=== PATIENT | female | born 1995 | race Caucasian/White ===

== ENCOUNTER 2017-02-14 16:00 | Outpatient (CLI) | payer BC, SELFPAY ==
[2017-02-14 17:00] VITALS: BMI 26.8
--- NOTE | 2017-03-18 13:22 | OB.TRI.NOTE ---
History of Present Illness Reason For Visit: R/O LABOR Home Medications Medication Instructions Recorded Vits [Prenatabs FA ] 1 tab PO DAILY 02/14/17 Naproxen [Naprosyn] 250 - 500 mg PO Q8H PRN PRN #30 tab 02/17/17 Allergies No Known Allergies Allergy (Verified 02/15/17 03:34) Impression/Plan False labor
== END 2017-02-14 17:17 | disposition home or self-care (01) ==
LOC: WP 17:01 → WPOUT 17:01
PROVIDERS: Visit Provider Obstetrics & Gynecology
DX: O47.9 False labor, unspecified (principal); Z3A.00 Weeks of gestation of pregnancy not specified
CPT/HCPCS: 59025; 59050; 99218; G0378

== ENCOUNTER 2018-01-20 16:46 | Emergency (ER) | payer BC, SELFPAY ==
[2018-01-20 16:46] VITALS: BP 115/67; PULSE 105; RESP 16; TEMP 36.6; O2SAT 98; BMI 21.6
[2018-01-20] MEDS: Ondansetron 4 MG/2 ML Vial IV (17:42)
[2018-01-20 17:43] LABS: Absolute Lymphocyte Count 0.38 X10^3/ul (0.83-4.51); Absolute Neutrophil Count 8.4 X10^3/uL (2.0-7.7); Basophil# 0.01 X10^3/uL; Basophil% 0.1 % (0-1); Eosinophil# 0.02 X10^3/uL; Eosinophils% 0.2 % (0-5); Hematocrit 39.6 % (37-47); Hemoglobin 13.3 g/dl (12.0-15.0); Lymphocyte # 0.38 X10^3/ul (4.0); Lymphocyte % 4.1 % (19-41); Mean Corp Hgb Conc 33.6 g/gl (32-36); Mean Corpuscular Hgb 30.9 pg (27.0-32.0); Mean Corpuscular Volume 91.9 fL (81-99); Mean Platelet Vol. 10.5 fl (6.2-12.0); Monocyte# 0.48 X10^3/uL; Monocyte% 5.1 % (0-10); Neutrophil # 8.42 X10^3/uL (2.7-7.7); Neutrophil % 90.3 % (47-70); POSITIVE COUNT NO; POSITIVE DIFFERENTIAL YES; POSITIVE MORPHOLOGY NO; Platelet Count 244 K/mm3 (150-450); RBC Distribution Width CV 13.5 % (11.6-14.6); RBC Distribution Width SD 45.2 fl (35.1-43.9); Red Blood Count 4.31 M/mm3 (4.2-5.4); White Blood Count 9.3 K/mm3 (4.4-11.0)
[2018-01-20] MEDS: 0.9% Normal Saline 1,000 ML 1000 ML IV (17:43)
[2018-01-20 17:44] LABS: Differential Indicated SCAN CRITERIA MET
[2018-01-20 17:52] LABS: Anion Gap 11 (5-15); BUN 7 mg/dL (7-18); BUN/Creat Ratio 12.8 RATIO (10-20); Chloride 106 mmol/L (98-107); Creatinine, Serum 0.55 mg/dL (0.55-1.02); EST Glomerular Filtration Rate 146 mL/min (>60); Est Glom Filt Rate - Afr Amer 176 mL/min (>60); Estimated Creatinine Clearance 176.57 ml/min; Glucose 82 mg/dL (74-106); Potassium 3.7 mmol/L (3.5-5.1); Sodium Level 139 mmol/L (136-145)
[2018-01-20 18:10] LABS: Anisocytosis RARE; Macrocytosis RARE; Platelet Estimate ADEQUATE (ADEQ)
--- NOTE | 2018-01-20 18:12 | ED.VISSUMM ---
- ER Visit Summary Date of Service: 01/20/18 Chief Complaint: Vomiting History of Present Illness: The patient is a 22 F who reports vomiting since 5 AM this morning. Patient is currently 22 weeks . She has some mild upper abdominal pain but no spotting or bleeding. She is felt normal movement. She has not had fever or chills. She has not had diarrhea. She denies urinary symptoms Physical Examination: Vital signs are unremarkable. Patient sitting upright in bed no acute distress. She is nontoxic appearing. Heart is regular rate and rhythm. Lung sounds are clear. Abdomen is soft, gravid, with mild epigastric tenderness. Normal bowel sounds are noted throughout. Test Results: CBC reveals normal white count with a slight left shift. Chemistry studies normal. Urinalysis shows 150 ketones but no sign of acute infection. heart tones are measured at 130. Emergency Department Course and Treatment: Patient is given a liter of IV fluids along with Zofran. On repeat evaluation she does feel improved and is able to tolerate p.o. She will be given a prescription for Zofran at home. Treatment Plan: [] Disposition: Discharge Impression: Vomiting, improved This note was generated with [employer] dictation software. It may contain incorrect words, spelling, and punctuation that were not noted in review of the chart prior to signing ED Disposition - Plan for ED Patient: Chief Complaint: Nausea/Vomiting Referrals: Care Physician,No Primary [Primary Care Provider] -
[2018-01-20 18:24] LABS: Red Blood Cells-Urine 0 SEEN /hpf (0-5)
[2018-01-20 18:55] LABS: Color, Urine Yellow (Yellow); Glucose, Dipstick Normal (Normal); Ketone-Dipstick 150 mg/dl (Negative); Leukocyte Esterase-Dipstick 100 /ul (Negative); Nitrite-Dipstick Negative (Negative); Occult Blood-Urine Negative /ul (Negative); Protein-Dipstick 15 mg/dl (Negative); Urine Bilirubin Dipstick Negative (Negative); Urine Clarity Cloudy (Clear); Urine Urobilinogen Normal (Normal)
[2018-01-20 18:58] LABS: Mucous, Urine 3+ /hpf (<or=2+); Squamous Epithelial Cells - UA 0-5 SEEN /hpf (5-10)
[2018-01-20 18:59] LABS: Bacteria RARE /hpf (None Seen); White Blood Cells 0-5 SEEN /hpf (0-5)
[2018-01-20 19:02] LABS: Transitional Epithelial - Ur 0-5 SEEN /hpf (0-5)
--- NOTE | 2018-01-20 19:43 | ED.DEP ---
ED Disposition - Plan for ED Patient: Disposition: Home or Assisted Living Chief Complaint: Nausea/Vomiting Instructions: ED Nausea Vomiting Prescriptions: Ondansetron [Zofran Odt] 4 mg PO Q8H PRN PRN #10 tablet PRN Reason: Nausea Referrals: Francoise Montiel MD [STAFF PHYSICIAN] - 3-5 Days if not improving
[2018-01-20 19:44] VITALS: BP 101/53; PULSE 94; RESP 16; O2SAT 98
[2018-01-20 19:53] VITALS: BP 101/53; PULSE 94; RESP 16; O2SAT 98
--- OUTSIDE RECORDS SUMMARY | 2018-03-17 16:32 | XMS RPT_ITS ---
:1995 Author Organization OHIP Care Team Providers Name Role Phone RAFAEL KINCAID Attending Unavailable DEANNE HERMOSILLO (CATTLE SPRAYER) Attending Unavailable SD JEFFERY Attending Unavailable BOSTON VARGAS SD Referring Unavailable JOSE SHER (CNM) Attending Unavailable NEKALI VARGAS SD Referring Unavailable JOSE SHER (CNM) Referring Unavailable JOSE SHER (CNM) Attending Unavailable BOSTON VARGAS SD Referring Unavailable BOSTON VARGAS SD Attending Unavailable BOSTON VARGAS, SD Referring Unavailable JOLIE BERMAN Attending Unavailable BOSTON VARGAS SD Referring Unavailable NATE MENDOSA Attending Unavailable Nate Mendosa Attending Unavailable Primay Care Physicia, No Primary Care Unavailable Rafael Kincaid Admitting Unavailable Rafael Kincaid Attending Unavailable Primay Care Physicia, No Primary Care Unavailable Nate Mendosa Attending Unavailable Primay Care Physicia, No Primary Care Unavailable Primay Care Physicia, No Primary Care Unavailable Leti Caban Attending Unavailable PROBLEMS PROBLEMS DATE TYPE CONDITION / CODE ATTENDING STATUS SOURCE 11/10/2017 Active 12 weeks gestation NA Active [facility] of / [facility] Z3A.12(ICD-10) Repository 10/10/2017 Active Encounter for NA Active [facility] supervision of [facility] other normal Repository , first trimester / Z34.81(ICD-10) 05/26/2017 Active Rash and other HERMOSILLO, DEANNE Active [facility] nonspecific skin (CATTLE SPRAYER) [facility] eruption / Repository R21(ICD-10) PROCEDURES PROCEDURES No Procedure Records FoundRESULTS RESULTS EMERGENCY DEPARTMENT Observed: 01/20/2018 Status: F Source: [place] SUMMARY 10:56 PM [facility] REPOSITORY [facility] Medical Records Department [address] [place] [address] Emergency Department Summary 01/20/18 1812 MR#: [id number] Acct: [id number] Name: VANDANA DOWNS Rep #: [id number] : 1995 22 From: Leti Caban MD PCP: Care Physician, No Primary Status: DEP ER - ER Visit Summary Date of Service: 01/20/18 Chief Complaint: Vomiting History of Present Illness: The patient is a 22 F who reports vomiting since 5 AM this morning. Patient is currently 22 weeks . She has some mild upper abdominal pain but no spotting or bleeding. She is felt normal movement. She has not had fever or chills. She has not had diarrhea. She denies urinary symptoms Physical Examination: Vital signs are unremarkable. Patient sitting upright in bed no acute distress. She is nontoxic appearing. Heart is regular rate and rhythm. Lung sounds are clear. Abdomen is soft, gravid, with mild epigastric tenderness. Normal bowel sounds are noted throughout. Test Results: CBC reveals normal white count with a slight left shift. Chemistry studies normal. Urinalysis shows 150 ketones but no sign of acute infection. heart tones are measured at 130. Emergency Department Course and Treatment: Patient is given a liter of IV fluids along with Zofran. On repeat evaluation she does feel improved and is able to tolerate p.o. She will be given a prescription for Zofran at home. Treatment Plan: [] Disposition: Discharge Impression: Vomiting, improved This note was generated with [employer] dictation software. It may contain incorrect words, spelling, and punctuation that were not noted in review of the chart prior to signing ED Disposition - Plan for ED Patient: Chief Complaint: Nausea/Vomiting Referrals: Care Physician,No Primary [Primary Care Provider] - What to do if you have Problems For any increased pain, shortness of breath, bleeding, nausea or vomiting, chest pain, or any unexpected problems, contact your Primary Care Provider. Call [facility] ([phone]) or report to the closest Emergency Room. Call 911 if necessary. 01/20/18 1466 <Electronically signed by Leti Caban MD> Date Leti Caban MD Cosigner Signature (If Indicated): Date CC: No Primary Care Physician DISCHARGE INSTRUCTION Observed: 01/20/2018 Status: F Source: [place] 7:44 PM [facility] REPOSITORY [facility] Medical Records Department [address] [place] [address] Discharge Instruction 01/20/18 1943 MR#: [id number] Acct: [id number] Name: HIMANSHUVANDANA Jannet Rep #: [id number] : 1995 22 From: Leti Caban MD PCP: Care Physician, No Primary Status: REG ER ED Disposition - Plan for ED Patient: Disposition: Home or Assisted Living Chief Complaint: Nausea/Vomiting Instructions: ED Nausea Vomiting Prescriptions: Ondansetron [Zofran Odt] 4 mg PO Q8H PRN PRN #10 tablet PRN Reason: Nausea Referrals: Sd Montiel MD [STAFF PHYSICIAN] - 3-5 Days if not improving What to do if you have Problems For any increased pain, shortness of breath, bleeding, nausea or vomiting, chest pain, or any unexpected problems, contact your Primary Care Provider. Call [facility] ([phone]) or report to the closest Emergency Room. Call 911 if necessary. 01/20/181943 <Electronically signed by Leti Caban MD> Date Leti Caban MD Cosigner Signature (If Indicated): Date CC: No Primary Care Physician URINALYSIS, COMPLETE Collected: 01/20/2018 Status: F Source: [place] 6:20 PM [facility] REPOSITORY Order Comment: Order Date: 01/20/18 Has pt arrived? Y How was Urine Obtained? CLEAN CATCH TYPE CODE TESTS RESULT OUT OF RANGE REFERENCE UNITS LAB L400.3000 Yellow COLOR Normal Yellow LAB L400.3050 Clear Normal CLARITY Cloudy LAB L400.3200 Normal mg/dl Normal GLUCOSE, UR Normal LAB L400.3300 Negative mg/dL Normal BILIRUBIN URINE Negative LAB L400.3400 Negative mg/dl High KETONE UR 150 Result Comment: CRITICAL VALUE *H CALLED TO René VIVEROS 01/20/18 1850 BY APOLINAR LAB L400.3465 1.002-1.030 SP.GR. Normal DIPSTX 1.020 LAB L400.3550 5.0 - 8.0 pH UR Normal 6.0 LAB L400.3600 Negative mg/dl PROT DIPSTX High 15 LAB L400.3700 Normal mg/dl UROBILI Normal Normal LAB L400.3750 Negative NITRITE UR Normal Negative LAB L400.3780 Negative /ul OCCULT Normal BLOOD-UR Negative LAB L400.3800 Negative /ul LEUK High ESTERASE 100 LAB L400.4050 0-5 /hpf WBC Normal 0-5 SEEN LAB L400.4100 0-5 /hpf RBC-UA Normal 0 SEEN LAB L400.4150 5-10 /hpf SQUAM EPI Normal 0-5 SEEN LAB L400.4300 None Seen /hpf BACTERIA Normal RARE LAB L400.4350 <or=2+ /hpf MUCUS, Normal URINE 3+ LAB L400.4200 0-5 /hpf Normal TRANSITIONAL EP 0-5 SEEN Performed By: #### L400.0001 #### [facility] [address] [place], [address] CBC W/DIFF, AUTOMATED Collected: 01/20/2018 Status: F Source: [place] 4:50 PM [facility] REPOSITORY TYPE CODE TESTS RESULT OUT OF RANGE REFERENCE UNITS LAB L100.1000 4.4-11.0 K/mm3 Normal WBC 9.3 LAB L100.1200 4.2-5.4 M/mm3 Normal RBC 4.31 LAB L100.1300 12.0-15.0 g/dl Normal HGB 13.3 LAB L100.1400 37-47 % Normal HCT 39.6 LAB L100.1500 81-99 fL Normal MCV 91.9 LAB L100.1600 27.0-32.0 pg Normal MCH 30.9 LAB L100.1700 32-36 g/gl Normal MCHC 33.6 LAB L100.1810 11.6-14.6 % Normal RDW CV 13.5 LAB L100.1820 35.1-43.9 fl High RDW SD 45.2 LAB L100.1900 150-450 K/mm3 Normal PLT 244 LAB L100.2000 6.2-12.0 fl Normal MPV 10.5 LAB L100.2100 47-70 % High NEUT% 90.3 LAB L100.2200 19-41 % Low LY% 4.1 LAB L100.2300 0-10 % Normal MONO% 5.1 LAB L100.2400 0-5 % Normal EO% 0.2 LAB L100.2500 0-1 % Normal BASO% 0.1 LAB L100.2550 0.0-0.9 % Normal IM GRAN % 0.200 Result Comment: IG% - Immature Granulocytes (promyelocytes, myelocytes and metamyelocytes) > 1% indicates that a LEFT SHIFT is Present. LAB L100.2620 2.0-7.7 X10 3/uL High Absolute Neut 8.4 LAB L100.2720 0.83-4.51 X10 3/ul Low Absolute Lymph 0.38 LAB L100.4500 Normal SMEAR COMMENT SEE COMMENT Result Comment: LYMPHOPENIA NOTED LAB L100.5500 ADEQ PLT EST Normal ADEQUATE LAB L100.7300 ANISO RARE Normal LAB L100.7800 RARE Normal MACROCYTE Performed By: #### L100.0100 #### [facility] [address] [place], [place], [address] BASIC METABOLIC Collected: 01/20/2018 Status: F Source: [place] PROFILE ([facility]) 4:50 PM [facility] REPOSITORY TYPE CODE TESTS RESULT OUT OF RANGE REFERENCE UNITS LAB L501.0100 74-106 mg/dL Normal GLU 82 Result Comment: Please note revised GLUCOSE reference range effective 2017. LAB L501.1000 7-18 mg/dL Normal BUN 7 LAB L501.1100 0.55-1.02 mg/dL Normal CREAT,SERUM 0.55 Result Comment: The validity of the calculated GFR AND GFRAA in patients over 70 years has not been determined. Clinical correlation is essential. LAB L501.1110 >60 mL/min Normal EST GFR 146 Result Comment: Non- GFR Calc LAB L501.1115 >60 mL/min Normal EST GFR - AA 176 Result Comment: GFR Calc LAB L501.1255 ml/min Normal Estimated CRCL 176.57 LAB L501.1300 10-20 RATIO BUN/CRE Normal 12.8 LAB L501.2200 8.5-10 mg/dL Low .1 CA 8.0 LAB L501.5300 136-14 mmol/L 5 NA Normal 139 LAB L501.5600 3.5-5. mmol/L 1 K Normal 3.7 LAB L501.5900 98-107 mmol/L CL Normal 106 LAB L501.6100 21.0-3 mmol/L 2.0 CO2 Normal 22.0 LAB L501.6200 5-15 GAP Normal 11 Performed By: #### L500.2500 #### [facility] [address] [place], [address] PROGRESS Observed: 01/05/2018 Status: COMPLETED Source: [place] 5:21 PM [facility] REPOSITORY HNO ID: [id number] Author: Jolie Berman Service: (none) Author Type: Physician Type: Progress Notes Filed: 01/05/2018 5:22 PM Note Text: A schaffer? fetus in utero with symmetric measurements Adequate growth (AGA). Estimated Date of Delivery: 05/22/18 EGA = 20w3d The anatomy appears normal. There are no evident malformations and /or effusions. No genetic markers are noted. The amniotic fluid volume is within normal limits. The sensitivity of ultrasound in the detection of malformations overall is approximately 35%. RECOMMENDATIONS: - Follow up ultrasound as clinically indicated PROGRESS Observed: 12/05/2017 Status: COMPLETED Source: [place] 3:55 PM [facility] [place] REPOSITORY HNO ID: [id number] Author: Madie Carranza Ma Service: (none) Author Type: (none) Type: Progress Notes Filed: 12/05/2017 4:21 PM Note Text: 22 year old female here for INACTIVATED INFLUENZA VACCINE. 9493-5549 Season Patient is identified by name and date of : Yes [] CONTRAINDICATIONS color enhanced section Age less than 6 months? No Allergy to eggs, chicken, chicken feathers, or chicken dander? No Allergy to thimerosal (a preservative) or formaldehyde, gelatin? No History of severe reaction to any vaccine component or a previous dose of influenza vaccination? No History of Guillain-Shoals Syndrome within 6 weeks after a previous influenza vaccine? No Patient is not moderately or severely ill? No Current temperature greater or equal to 100.4F? No History of Bone Marrow Transplant prior 6 months or solid organ transplant in the past 3 months ? No History of fainting after a prior injection or medical procedure? No- ? If patient has fainted in the past, the CDC recommends sitting or lying down for 15 minutes after the vaccination. [] VERIFICATION color enhanced section Was the answer Yes for any of the above contraindications? No contraindications present. Acceptable to proceed with vaccine. Patient/guardian agrees the above answers are true to the best of their knowledge? Yes Flu vaccine information sheet given? Yes See immunization activity in [facility] for details of immunizations adminstered today. Patient age: [age] year old For The 7176-4962 Flu Season 6-35 months old: Fluzone 0.25 ml - IM (Preservative Free) 3 years of age: Fluzone 0.5 ml - IM (Preservative Free) 3 years and older: Fluzone 0.5 ml- IM-(with Preservatives) 65+ years old: 2-49 years old Fluzone High-Dose 0.5 ml - IM (Preservative Free) FLUMIST- intranasal REMEMBER: If patient is less than 9 years of age and this is the first vaccine of Influenza to be received in any flu season, they should receive a second dose in one months time. Observed: 11/07/2017 Status: F Source: [place] URINE CULTURE 4:00 PM [facility] REPOSITORY Sp. Request/Comment: - Specimen received in preservative Culture Result - <10,000 CFU/ml Enterococcus faecalis --> ABNORMAL ALERT Cephalosporins, clindamycin, and TMP-SMX are not effective for the treatment of enterococcal infections. --> ABNORMAL AL ERT Insignificant colony count. No further workup. --> ABNORMAL ALERT <10,000 CFU/ml Normal urogenital lloyd Performed By: #### URCUL #### [facility] [address] [place], [place] [address] CBC Collected: 10/10/2017 Status: F Source: [place] 10:39 AM [facility] REPOSITORY TYPE CODE TESTS RESULT OUT OF REFERENCE UNITS RANGE LAB WBC 3.70-11.00 k/uL WBC 8.05 LAB RBC 3.90-5.20 m/uL RBC 4.43 LAB HGB 11.5-15.5 g/dL Hemoglobin 13.5 LAB HCT 36.0-46.0 % Hematocrit 42.4 LAB MCV 80.0-100.0 fL MCV 95.7 LAB MCH 26.0-34.0 pG MCH 30.5 LAB MCHC 30.5-36.0 g/dL MCHC 31.8 LAB RDWCV 11.5-15.0 % RDW-CV 12.6 LAB PLTCT 150-400 k/uL Platelet Count 271 LAB MPV 9.0-12.7 fL MPV 11.8 LAB ABSNUC <0.01 k/uL Absolute nRBC <0.01 Performed By: #### CBC, RUBIGG, SYPHGX, HBSAG, HIV12C #### [place] [id number] [place] [address] RUBELLA IGG ANTIBODY Collected: 10/10/2017 Status: F Source: [place] 10:39 AM [facility] REPOSITORY TYPE CODE TESTS RESULT OUT OF RANGE REFERENCE UNITS LAB RUBGQL Negative Abnormal Rubella IgG Positive Alert Ab, Qual Result Comment: Sample is considered positive for IgG antibodies to rubella virus. A positive result indicates previous exposure to Rubella virus or vaccination. LAB RUBQNT Index Value Rubella IgG Ab 3.50 Result Comment: Index values are interpreted as follows: Negative specimens <0.90 Equivocol specimens 0.90 to 0.99 Positive specimens >0.99 The magnitude of the measured result is not indicative of the amount of antibody present. Performed By: #### CBC, RUBIGG, SYPHGX, HBSAG, HIV12C #### [place] [address] SYPHILIS IGG WITH Collected: 10/10/2017 Status: F Source: [facility] 10:39 [facility] REPOSITORY TYPE CODE TESTS RESULT OUT OF REFERENCE UNITS RANGE LAB SYPHQL Nonreactive Syphilis IgG, Nonreactive Qual Result Comment: No serological evidence of infection with T. pallidum. LAB SYPHLG AI Syphilis IgG <0.2 Result Comment: Antibody index is interpreted as follows: Non reactive SPECIMENS <=0.8 Weak reactive SPECIMENS 0.9 to 5.9 Reactive SPECIMENS >=6.0 Performed By: #### CBC, RUBIGG, SYPHGX, HBSAG, HIV12C #### [place] [address] [place] [address] HEPATITIS B SURF. AG Collected: 10/10/2017 Status: F Source: [place] 10:39 [facility] REPOSITORY TYPE CODE TESTS RESULT OUT OF REFERENCE UNITS RANGE LAB HBSAG Negative Hepatitis B Negative Surf. Ag Performed By: #### CBC, RUBIGG, SYPHGX, HBSAG, HIV12C #### [place] [address] [place] [address] HIV 12 COMBO (AG/AB) Collected: 10/10/2017 Status: F Source: [place] 10:39 AM [facility] REPOSITORY TYPE CODE TESTS RESULT OUT OF REFERENCE UNITS RANGE LAB HVAGAB Non Reactive HIV Non Reactive 12 Ag/Ab Result Comment: (NOTE) HIV Information: [place] Rev. Code 3701.243(E): This information has been disclosed to you from confidential records protected from disclosure by state law. You shall make no further disclosure of this information without the specific, written, and informed release of the individual to whom it pertains, or as otherwise permitted by state law. A general authorization for the release of medical or other information is not sufficient for the purpose of the release of HIV test results or diagnoses. Performed By: #### CBC, RUBIGG, SYPHGX, HBSAG, HIV12C #### [place] [address] TYPE AND SCR,PRENATL Collected: 10/10/2017 Status: F Source: [place] 10:39 AM [facility] REPOSITORY TYPE CODE TESTS RESULT OUT OF REFERENCE UNITS RANGE LAB %ABR ABO/RH(D) AB POSTIVE LAB % Antibody NEG Screen Performed By: #### TSPN #### [place] [address] GC/CHLAMYDIA AMPLIF Collected: 10/10/2017 Status: F Source: [place] 10:00 AM [facility] REPOSITORY TYPE CODE TESTS RESULT OUT OF REFERENCE UNITS RANGE LAB GCCTSR GC/Chlam Amp Cervix Source LAB GCAMPL GC Negative Amplification for Neisseria gonorrhoeae by amplification. LAB CLAMPL Chlamydia Negative Amplif for Chlamydia trachomatis by amplification. Performed By: #### GCCT #### [place] [address] TOXICOLOGY SCREEN,UR Collected: 10/10/2017 Status: F Source: [place] 9:50 AM [facility] REPOSITORY TYPE CODE TESTS RESULT OUT OF REFERENCE UNITS RANGE LAB UPCP2 Negative Negative Phencyclidin e, Urine Result Comment: Cutoff threshold at 25 ng/mL. LAB UBENZ2 Negative Benzodiazepines, Ur Negative Result Comment: Cutoff threshold at 200 ng/mL. LAB UCOC2 Negative Cocaine, Negative Urine Result Comment: Cutoff threshold at 300 ng/mL. LAB UAMPH2 Negative Amphetamines, Urine Negative Result Comment: Cutoff threshold at 1000 ng/mL. LAB UTHC2 Negative Cannabinoids, Urine Negative Result Comment: Cutoff threshold at 50 ng/mL. LAB UOPI2 Negative Opiates, Negative Urine Result Comment: Cutoff threshold at 300 ng/mL. LAB UBARB2 Negative Barbiturates, Urine Negative Result Comment: Cutoff threshold at 200 ng/mL. LAB UETOH <11 mg/dL <11 Ethanol, Urine LAB UOXYC Negative Oxycodone, Negative Urine Result Comment: Cutoff threshold at 100 ng/mL. Comment: Immunoassay screen only. Cross reactivity with other substances can occur with immunoassay screening. Detection of any drug(s) in this urine toxicology panel is presumptive only. These tests are for med ica purposes only and should not be used for compliance monitoring, legal, or forensic use. Samples should be within normal physiological conditions (e.g. pH). This assay does not include adulteration/specimen validity testing. In clinical settings, confirmatory testing is at the practitioner's discretion [1]. If clinically indicated, confirmation by high specificity, quantitative methodology, which includes adulteration/spec imen validity testing, may be requested on the same specimen through Client Services ([phone]) if contacted within 48 hours of initial testing. [1]Substance Abuse and Mental Health Services Administration (2012). Clinical Drug Testing in Primary Care Technical Assistance Publication Series 32. Department of Health and Human Services, [place], p.10. These tests were developed and their performance characteristics determined by [facility]'s [facility] [place] ( [facility]). They have not been cleared or a pproved by the FDA. [facility] is regulated under CLIA as qualified to perform high complexity testing. These tests are used for clinical purposes. They should not be regarded as investigational or for research. Performed By: #### UTOX2 #### [facility] [address] [place], [place] [address] Observed: 10/10/2017 Status: F Source: [place] URINE CULTURE 9:50 AM [facility] REPOSITORY Sp. Request/Comment: - Specimen received in preservative Culture Result - >=100,000 CFU/ml Escherichia coli --> ABNORMAL ALERT ORGANISM: Escherichia coli METHOD: Minimum inhibitory concentration(Vitek) Antibiotic Interp SAMSON Status Ampicillin SUSCEPTIBLE <=2 F Gentamicin SUSCEPTIBLE 4 F Trimeth sulfameth SUSCEPTIBLE <=20 F Cefazolin SUSCEPTIBLE <=4 F CLSI breakpoints for therapy of uncomplicated UTI's due to E.coli, K.pneumoniae, and P.mirabilis were applied and may be used to predict the activity of oral agents(cefaclor, cefdinir, cefpodoxime, cefp rozil, cefuroxime, cephalexin, loracarbef). Ciprofloxacin SUSCEPTIBLE <=0.25 F Nitrofurantoin SUSCEPTIBLE <=16 F Cefepime SUSCEPTIBLE <=1 F Piperacillin/Tazobac SUSCEPTIBLE <=4 F Ampicillin Sulbact SUSCEPTIBLE <=2 F Ceftriaxone SUSCEPTIBLE <=1 F Meropenem SUSCEPTIBLE <=0.25 F Ertapenem SUSCEPTIBLE <=0.5 F Performed By: #### URCUL #### [facility] [address] [place], [place] [address] PROGRESS Observed: 10/10/2017 Status: COMPLETED Source: [place] 9:40 AM [facility] [place] REPOSITORY HNO ID: [id number] Author: Sd Vargas Service: (none) Author Type: Physician Type: Progress Notes Filed: 10/10/2017 10:46 AM Note Text: INITIAL OB ASSESSMENT OB Provider: Sd Vargas MD HPI: Vandana Downs is a 22 year old female here to establish Obstetrical Care. No LMP recorded. Patient is . from OB Dating Form. Cycle length: 30 days Complaints: None was unplanned but accepted. Obstetric History T1 L1 SAB0 TAB0 Ectopic0 Multiple0 Live Births1 Prior : never History of 4th degree laceration: No Patient's Risk Screening for delivery: History of abnormal pap: No Prior treatment for cervical dysplasia: none. History of STDs: None Tobacco use: No Caffeine use: yes Drug use: No Alcohol use: No Multivitamin with Folic acid: Yes Occupation: administrative staff supervisor Hindu or heritage: No Would refuse blood transfusion if medically necessary: No BMI 21.95 kg/(m2) Patient BMI over 30? No Marital Status: Partner: Name: Dexter Age: 25 Occupation: Maintenance Gender: male History of STDs: None PAST MEDICAL HISTORY Diagnosis Date - anxiety - Miscarriage - NONE PAST SURGICAL HISTORY Procedure Laterality Date - PAST SURGICAL HISTORY OF wisdom teeth Current Outpatient Prescriptions on File Prior to Visit: mometasone (ELOCON) 0.1 % cream Apply 1 application to affected area once daily. Ccwtwvtq-Sk-Ihc-Fe-FA ( VITAMIN) tab Take 1 tablet by mouth. No current facility-administered medications on file prior to visit. Review of Systems: GENERAL: Negative for: Fever or Chills HEENT: Negative for: Headache, Impaired Vision, Ringing in Ears, Nosebleeds NECK: Negative for: Swelling, Pain, Stiffness RESPIRATORY: Negative for: Cough, Shortness of breath, Wheezing GASTROINTESTINAL: Negative for: Heartburn, Constipation, Diarrhea, Blood in stool, Vomiting MUSCULOSKELETAL: Negative for: Muscle or joint pain, stiffness, Joint swelling NEUROLOGIC/PSYCHIATRIC: Negative for: Weakness, Paralysis, Numbness, Tingling, Tremor, Anxiety, Depression, Memory loss SKIN: psoriasis GENITOURINARY: Negative for: vaginal itching, vaginal discharge, hematuria or dysuria PHYSICAL EXAM: Ht 5' 10 (1.78m) Wt 153 lb (69.4kg) BMI 21.95 kg/(m2). GENERAL: pleasant female in no apparent distress DERMATOLOGY: Normal, without lesions, non-icteric and non-hirsute NECK: Supple, full range of motion, no adenopathy and thyroid normal BREAST: soft, non-tender, symmetric, normal nipple-areolar complex, no lymphadenopathy, no nipple discharge and left breast with round mobile, non tender mass about 1cm at 12:00 position. ABDOMEN: soft, non-tender and no masses NEURO: alert and oriented x3,exam grossly non-focal PELVIS: External genitalia normal without lesions. Perineal body intact. No vaginal or cervical lesions. Cervix closed. Uterus 8 week size. No adnexal masses or tenderness. Clinical Pelvimetry: Pelvimetry clinically assessed as adequate Limited OB ultrasound exam: single intrauterine and positive cardiac activity ASSESSMENT: 22 year old at 8 wks gestational age PLAN: 1) Patient oriented to practice. Discussed nutrition, folic acid supplementation, dietary guidelines, exercise, smoking, alcohol, caffeine, and drug use. Discussed routine OB labs including STD/HIV. Discussed aneuploidy screening options including serum screening and nuchal translucency. Patient declines all aneuploidy screening. 2) breast mass reviewed- will continue to monitor with SBE during - if still present after delivery and breast feeding consider mammogram Follow up in 4 weeks or sooner prn. Sd Montiel MD CNOV Observed: 05/26/2017 Status: COMPLETED Source: [place] 10:00 AM [facility] REPOSITORY Office Visit (INTMWS) VANDANA DOWNS ([id number]) 1995 F Date Time Provider Department 05/26/17 10:00 AM DEANNE HERMOSILLO (TIM) INTMWS During your visit today, we recorded the following information about you: Pulse Respiration Blood pressure Weight 78/minute 16/minute 112/64 66.2 kg Height 1.778 m Deanne Hermosillo APRN.CNS 05/26/2017 10:29 AM Signed OUTPATIENT VISIT DATE May 26, 2017 OUTPATIENT VISIT TYPE NEW PRIMARY CARE PHYSICIAN: Randal Bonilla MD CHIEF COMPLAINT: Patient presents with: Derm Problem: middle finger left hand x 4 months History of Present Illness: Vandana Downs is a 21 year old female who presents for rash on finger and disfigured nail of third finger left hand. 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 Itchy, not painful. Present for 2- 3 months. Has been using vaseline with some relief. No systemic complaints. Reports still . No nailbiting or submersion of hand in liquids, no glove use. No systemic complaints. PAST MEDICAL HISTORY Diagnosis Date - anxiety - Miscarriage - NONE PAST SURGICAL HISTORY Procedure Laterality Date - PAST SURGICAL HISTORY OF wisdom teeth FAMILY HISTORY Problem Relation Age of Onset - Allergies Father - Asthma Father - Allergies Sister - Cancer Paternal Grandfather - Cancer Paternal Grandmother Social History Substance Use Topics - Smoking status: Never Smoker - Smokeless tobacco: Never Used - Alcohol use No ALLERGIES: ALLERGIES No Known Allergies MEDICATIONS Jwhynxnv-Bw-Ize-Fe-FA ( VITAMIN) tab Take 1 tablet by mouth. ciclopirox (LOPROX) 0.77 % cream Apply 1 application to affected area twice daily. mometasone (ELOCON) 0.1 % cream Apply 1 application to affected area once daily. REVIEW OF SYSTEMS: GENERAL: Negative for: Weight loss or gain, Fever or Chills, Weakness and Sleep difficulties. Physical Examination: BP 112/64 Pulse 78 Resp 16 Ht 5' 10ANDquot; (1.78m) Wt 146 lb (66.2kg) BMI 20.95 kg/(m2). Extended Vitals not filed for this encounter. General appearance: Well appearing, alert, in no acute distress, well-hydrated, well nourished. Skin: Skin color, texture, turgor normal, + small area surrounding nail, distal phalanx L 3rd finger, tiny open areas, erythematous, no drainage or warmth, rash on left third finger and white discoloration and misshapen nail Reviewed chart, outside records, tests I personally interviewed, confirmed and edited the above information if obtained by others. TESTING: No results found for: GLUC, K, NA, CHLOR, CO2, CREAT, BUN, ANION, CA Protein, Total (g/dL) Date Value 02/08/2017 6.5 Albumin (g/dL) Date Value 02/08/2017 3.2 Bilirubin, Total (mg/dL) Date Value 02/08/2017 0.3 Alkaline Phosphatase (U/L) Date Value 02/08/2017 134 AST (U/L) Date Value 02/08/2017 22 ALT (U/L) Date Value 02/08/2017 14 Hemoglobin (g/dL) Date Value 11/16/2016 12.0 Hematocrit (%) Date Value 11/16/2016 36.7 WBC (k/uL) Date Value 11/16/2016 10.38 No results found for: CHOL, HDL, LDL, TG No results found for: HBA1C Ejection Fraction: No results found IMPRESSION: Ms. Downs is a 21 year old woman currently with itchy rash on left third finger and discolored misshapen nail most consistent with nail fungus / fungal infection of surrounding skin. does have eczema on feet After my examination and review of data, I make the following recommendations. PLAN AND RECOMMENDATIONS: 1. Rash and nonspecific skin eruption - ICD9: 782.1, ICD10: R21 For now would treat as fungal infection As currently , would avoid topical loprox for area until no longer breast feeding as unknown if excreted in breast milk. Recommend 10% vinegar and water soak ,daily wash with soap and water. Can apply tea tree oil to nail bed. Vaseline or eucerin cream to surrounding skin. When no longer start loprox. Return to clinic if not improving can consider oral medication, recheck. Recommend she establish with a PCP. Advised to go to ER if develops chest pain, shortness of breath, or severe worsening of symptoms. Discussed risks, benefits, alternatives, and potential side effects of medications. Ms. Downs expressed understanding and agreed with the plan. Deanne Hermosillo APRN.CATTLE SPRAYER Referring Provider: SELF [[id number]] Allergies As of Date: 05/26/2017 (No Known Allergies) Date Reviewed: 05/26/2017 Reviewed by: Joceline Hale Ma - Fully Assessed Reason for Visit: Derm Problem [33] Cmt: middle finger left hand x 4 months Primary Visit Diagnosis:Rash and nonspecific skin eruption [R21] Order(s):ciclopirox (LOPROX) 0.77 % creamApply 1 application to affected area twice daily.Disp: 15 gRfl: 2 Prescriptions as of 05/26/2017 Sig: VITAMIN,CALCIUM,MINE* Take 1 tablet by mouth. 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 Bleeding in early [O20.9] INVALID FOR* More... History of anxiety [Z86.59] INVALID FOR* More... PUPP (pruritic urticarial papules and plaques o*INVALID FOR* Prescriptions ordered this encounter Disp Refills Start End CICLOPIROX 0.77 % TOPICAL CREAM 15 g 2 05/26/2017 06/25/2017 Cmt: Hold on file until needed Route: TOPICAL Sig: Apply 1 application to affected area twice daily. Follow-up and Disposition History Recorded Encounter Status:Closed by DEANNE MARTINEZ on 05/26/17 PROGRESS Observed: 05/26/2017 Status: COMPLETED Source: [place] 9:53 AM [facility] REPOSITORY HNO ID: [id number] Author: Deanne Gonzalez) [place] Service: (none) Author Type: Nurse Specialist Type: Progress Notes Filed: 05/26/2017 10:29 AM Note Text: OUTPATIENT VISIT DATE May 26, 2017 OUTPATIENT VISIT TYPE NEW PRIMARY CARE PHYSICIAN: Randal Bonilla MD CHIEF COMPLAINT: Patient presents with: Derm Problem: middle finger left hand x 4 months History of Present Illness: Vandana Downs is a 21 year old female who presents for rash on finger and disfigured nail of third finger left hand. 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 Itchy, not painful. Present for 2-3 months. Has been using vaseline with some relief. No systemic complaints. Reports still . No nailbiting or submersion of hand in liquids, no glove use. No systemic complaints. PAST MEDICAL HISTORY Diagnosis Date - anxiety - Miscarriage - NONE PAST SURGICAL HISTORY Procedure Laterality Date - PAST SURGICAL HISTORY OF wisdom teeth FAMILY HISTORY Problem Relation Age of Onset - Allergies Father - Asthma Father - Allergies Sister - Cancer Paternal Grandfather - Cancer Paternal Grandmother Social History Substance Use Topics - Smoking status: Never Smoker - Smokeless tobacco: Never Used - Alcohol use No ALLERGIES: ALLERGIES No Known Allergies MEDICATIONS Hvbpcvop-Dz-Lla-Fe-FA ( VITAMIN) tab Take 1 tablet by mouth. ciclopirox (LOPROX) 0.77 % cream Apply 1 application to affected area twice daily. mometasone (ELOCON) 0.1 % cream Apply 1 application to affected area once daily. REVIEW OF SYSTEMS: GENERAL: Negative for: Weight loss or gain, Fever or Chills, Weakness and Sleep difficulties. Physical Examination: BP 112/64 Pulse 78 Resp 16 Ht 5' 10 (1.78m) Wt 146 lb (66.2kg) BMI 20.95 kg/(m2). Extended Vitals not filed for this encounter. General appearance: Well appearing, alert, in no acute distress, well-hydrated, well nourished. Skin: Skin color, texture, turgor normal, + small area surrounding nail, distal phalanx L 3rd finger, tiny open areas, erythematous, no drainage or warmth, rash on left third finger and white discoloration and misshapen nail Reviewed chart, outside records, tests I personally interviewed, confirmed and edited the above information if obtained by others. TESTING: No results found for: GLUC, K, NA, CHLOR, CO2, CREAT, BUN, ANION, CA Protein, Total (g/dL) Date Value 02/08/2017 6.5 Albumin (g/dL) Date Value 02/08/2017 3.2 Bilirubin, Total (mg/dL) Date Value 02/08/2017 0.3 Alkaline Phosphatase (U/L) Date Value 02/08/2017 134 AST (U/L) Date Value 02/08/2017 22 ALT (U/L) Date Value 02/08/2017 14 Hemoglobin (g/dL) Date Value 11/16/2016 12.0 Hematocrit (%) Date Value 11/16/2016 36.7 WBC (k/uL) Date Value 11/16/2016 10.38 No results found for: CHOL, HDL, LDL, TG No results found for: HBA1C Ejection Fraction: No results found IMPRESSION: Ms. Downs is a 21 year old woman currently with itchy rash on left third finger and discolored misshapen nail most consistent with nail fungus / fungal infection of surrounding skin. does have eczema on feet After my examination and review of data, I make the following recommendations. PLAN AND RECOMMENDATIONS: 1. Rash and nonspecific skin eruption - ICD9: 782.1, ICD10: R21 For now would treat as fungal infection As currently , would avoid topical loprox for area until no longer breast feeding as unknown if excreted in breast milk. Recommend 10% vinegar and water soak ,daily wash with soap and water. Can apply tea tree oil to nail bed. Vaseline or eucerin cream to surrounding skin. When no longer start loprox. Return to clinic if not improving can consider oral medication, recheck. Recommend she establish with a PCP. Advised to go to ER if develops chest pain, shortness of breath, or severe worsening of symptoms. Discussed risks, benefits, alternatives, and potential side effects of medications. Ms. Downs expressed understanding and agreed with the plan. Deanne Hermosillo APRN.CATTLE SPRAYER PROGRESS Observed: 03/29/2017 Status: COMPLETED Source: [place] 9:16 AM [facility] REPOSITORY HNO ID: [id number] Author: Rafael Kincaid Service: (none) Author Type: Physician Type: Progress Notes Filed: 03/29/2017 10:02 AM Note Text: VISIT Obstetric History T1 L1 SAB0 TAB0 Ectopic0 Multiple0 Live Births1 Name of Baby 1: Not recorded Date: 04/29/16 GA: 6w0d Delivery: Not recorded Apgar1: Not recorded Apgar5: Not recorded Living: Not recorded Name of Baby 2: [place] Date: 02/15/17 GA: 41w0d Delivery: Vaginal, Vacuum (Extractor) Apgar1: 9 Apgar5: 9 Living: Living Vandana Downs is a 21 year old year old here for visit. Delivery Summary: Recovery: Feeding: Breast feeding problems: Saw Maide Mcdonald Menses since delivery: Not resumed Menstrual pattern prior to : Regular periods [place] since delivery: Not resumed Depression: denies symptoms of depression. See depression screening tab. Emotional support: Yes, Bowel symptoms: Negative for abdominal discomfort, blood in stools or black stools and change in bowel habits Bladder symptoms: No dysuria, gross hematuria, urinary frequency, urinary urgency, or incontinence Other issues: None Last Pap: 2017 normal HPV: N/A PAST MEDICAL HISTORY Diagnosis Date - anxiety - Miscarriage - NONE PAST SURGICAL HISTORY Procedure Laterality Date - PAST SURGICAL HISTORY OF wisdom teeth FAMILY HISTORY Problem Relation Age of Onset - Allergies Father - Asthma Father - Allergies Sister - Cancer Paternal Grandfather - Cancer Paternal Grandmother SOCIAL HISTORY Social History Marital status: Spouse name: Dexter Years of education: 14 Number of children: Occupational History Occupation Employer Comment administrative staff supervisor [employer] Social History Main Topics Smoking status: Never Smoker Smokeless status: Never Used Alcohol use: No Drug use: No Sexual activity: No PHYSICAL EXAMINATION: There were no vitals taken for this visit. GENERAL: pleasant, female in no apparent distress HEENT: Normocephalic, atraumatic, mucus membranes moist and no lesions NECK: Supple, full range of motion, no adenopathy and thyroid normal DERMATOLOGY: Normal, without lesions, non-icteric and non-hirsute BREAST: soft, non-tender, symmetric, no dominant mass, normal nipple-areolar complex, no lymphadenopathy and no nipple discharge CHEST: Normal inspiratory effort ABDOMEN: soft, non-tender and no masses. PELVIC: external genitalia normal, normal Bartholin's glands, urethra, Barton's glands, no vulvar lesions, no cervical lesions, good vaginal support, physiologic discharge present, normal appearing perineal body and perianal region BIMANUAL: uterus normal size, shape and consistency, no adnexal masses and non-tender NEURO: alert and oriented x3,exam grossly non-focal EXTREMITIES: normal ASSESSMENT AND PLAN: 21 year old status post with normal course. Contraception plan: declines Follow up: RTC for annual exams and PRN Rafael Kincaid MD PROGRESS Observed: 02/24/2017 Status: COMPLETED Source: [place] 3:22 PM [facility] REPOSITORY HNO ID: [id number] Author: Corey Flores LPN Service: (none) Author Type: (none) Type: Progress Notes Filed: 02/24/2017 3:23 PM Note Text: Pt delivered via Vacuum delivery at [facility] on 02/15/[address] Mendosa. See OB Outcome note. Corey Flores LPN' HOSP Observed: 02/24/2017 Status: COMPLETED Source: [place] 12:00 AM [facility] REPOSITORY Patient Update (WOOB) VANDANA DOWNS ([id number]) 1995 F Date Time Provider Department 02/24/17 NATE MENDOSA During your visit today, we recorded the following information about you: Corey Flores LPN 02/24/2017 3:23 PM Signed Pt delivered via Vacuum delivery at [facility] on 02/15/[address] Mendosa. See OB Outcome note. Corey Flores LPN' Allergies As of Date: 02/24/2017 (No Known Allergies) Date Reviewed: 02/08/2017 Reviewed by: Madie Carranza Ma - Fully Assessed Prescriptions as of 02/24/2017 Sig: MOMETASONE 0.1 % TOPICAL CREAM Apply 1 application to affect* VITAMIN,CALCIUM,MINE* Take 1 tablet by mouth. 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 Bleeding in early [O20.9] INVALID FOR* More... History of anxiety [Z86.59] INVALID FOR* More... PUPP (pruritic urticarial papules and plaques o*INVALID FOR* Encounter Status:Closed by COREY FLORES LPN on 02/24/17 DISCHARGE INSTRUCTION Observed: 02/17/2017 Status: F Source: [place] 9:33 AM [facility] REPOSITORY [facility] Medical Records Department [address] [place] [address] Instructions for Home/Discharge Instructions 02/17/17 0933 MR#: [id number] Acct: [id number] Name: VANDANA DOWNS Rep #: [id number] : 1995 21 From: Sd Vargas MD PCP: Care Physician, No Primary Status: ADM IN Discharge Diet: No Restrictions Discharge Activity: Return to Normal Activity, May not drive while taking narcotic pain medications., May Shower May resume sexual activity in: 4-6 weeks Additional Activity Instructions:: Nothing in the vagina for 4-6 weeks. You may return to work/school in 6 weeks. Call your doctor if your incision/area has: Continuous Slow Oozing, Sudden Increased Bleeding, Increased Pain/ Swelling, Increased Redness, Foul Smelling Discharge Additional Instructions: If you experience any of the following, contact your healthcare provider. * Bleeding that soaks a pad every hour for 2 hours * Fever 100.4 or higher * Unrelieved incision or abdominal pain * Swelling, redness, discharge or bleeding from your incision or episiotomy site * Your incision begins to separate * Problems urinating (including inability to urinate or burning while urinating). * Visual changes * Severe headache * Flu-like symptoms * Pain or redness in one of both of your breasts * Pain, warmth, tenderness or swelling in your legs, especially the calf area * Frequent nausea and vomiting * Symptoms of depression or anxiety If you experience any of the following, call 911 or go to the nearest Emergency Room. * Chest pain * Problems breathing * Seizure activity * Partial or complete paralysis of a body part, slurred speech, weakness or drooping of the face, or a sudden inability to walk or hold your balance Allergies/Adverse Reactions: Allergies No Known Allergies Allergy (Verified 02/15/17 03:34) Medications to take at Discharge Vits [Prenatabs FA ] 1 tab PO DAILY 02/14/17 Naproxen [Naprosyn] 250 - 500 mg PO Q8H PRN PRN #30 tab 02/17/17 The following prescriptions were given: Naproxen [Naprosyn] 250 - 500 mg PO Q8H PRN PRN #30 tab PRN Reason: MILD PAIN (1-04/30) When: Call to make an appointment with your doctor in 6 weeks. If you had elevated Blood Pressure or 4th degree laceration you will need to be seen in 2 weeks. Primary Care Physician: Elan Physician,No Primary [Primary Care Provider] - 02/17/17 0933 <Electronically signed by Sd Vargas MD> Date Sd Montiel MD CC: No Primary Care Physician CBC-COMPLETE BLOOD CNT Collected: 02/16/2017 Status: F Source: [place] NO DIFF 5:30 AM [facility] REPOSITORY Order Comment: Reason for Laboratory Test Day #1 TYPE CODE TESTS RESULT OUT OF RANGE REFERENCE UNITS LAB L100.1000 4.4-11.0 K/mm3 High WBC 17.0 LAB L100.1200 4.2-5.4 M/mm3 Low RBC 4.10 LAB L100.1300 12.0-15.0 g/dl Normal HGB 13.2 LAB L100.1400 37-47 % Normal HCT 39.3 LAB L100.1500 81-99 fL Normal MCV 95.9 LAB L100.1600 27.0-32.0 pg High MCH 32.2 LAB L100.1700 32-36 g/gl Normal MCHC 33.6 LAB L100.1810 11.6-14.6 % Normal RDW CV 13.3 LAB L100.1820 35.1-43.9 fl High RDW SD 46.4 LAB L100.1900 150-450 K/mm3 Normal PLT 203 LAB L100.2000 6.2-12.0 fl Normal MPV 10.5 Performed By: #### L100.0500 #### [facility] [address] [place], [address] OPERATIVE REPORT Observed: 02/15/2017 Status: F Source: [place] 5:28 PM [facility] REPOSITORY [facility] Medical Records Department [address] [place] [address] Operative Report 02/15/17 1708 MR#: [id number] Acct: [id number] Name: VANDANA DOWNS Rep #: [id number] : 1995 21 From: Nate Mendosa MD PCP: Care Physician, No Primary Status: ADM IN Y Location: [place] [id number] Vaginal Delivery Maternal Presentation: Active Labor Amniotic Membrane Rupture Type: Artificial Amniotic Fluid Description: Clear Final PAZ: 02/08/17 Final PAZ Source: US <20 weeks Gestational age: 41 Weeks and 0 Days Date of Procedure: 02/15/17 Pre-Operative Diagnosis: labor, maternal exhaustion Post-Operative Diagnosis: same Surgery/ Procedure Performed: Vacuum Assisted Vaginal Delivery - outlet Type of Anesthesia: Epidural Description of Procedure: Patient was complete and pushing for over 3 hours. I arrived and the patient was tearful and frustrated. She was uncomfortable and had a hot spot on one side of her abdomen. Her epidural was being redosed. She was making good progress but for the past hour she was maternally be approximately 2 cm without any significant distant past that. Position was VINEET. Estimated weight is less than 4500 g and pelvis is clinically adequate. Doran catheter was in place. I suggest with the patient and her response and alternatives to trial vacuum-assisted vaginal delivery. Patient desired to proceed. Was placed and 500 mmHg pressure were created. I pulled with maternal pushing during the first contraction after vacuum was placed. The vacuum slid off there is not a definitive pop but we considered this a pop off. The vacuum was replaced on the flexion point and I pulled with 2 more contractions to . The vacuum was removed without any further pop offs. The head then delivered spontaneously with the next push. The remainder the was delivered with one push with minimal traction in less than 15 seconds without difficulty. The infant was placed on the maternal abdomen where he was stimulated and attended to by the nursing staff. After 1 minute the cord was clamped and cut and the placenta was delivered spontaneously intact. Cord gases had been collected. A second-degree perineal laceration was repaired with 3-0 Vicryl repeat suture in standard fashion. Cervix and the vagina were intact. The vaginal sweep was completed by me. Presentation: VINEET Placental Delivery Description: Spontaneous Placenta Disposition: Sent to Pathology - possible chorio Cord Vessel Description: 3 Vessels Cord Entanglement: None Drain: Doran to straight drain Estimated Blood Loss: 300 A gender: Male (1 minute): 9 (5 minute): 9 Episiotomy Description: None Laceration: 2nd degree - perineal Medications given after delivery: IV Pitocin Complications: None 02/15/17 1728 <Electronically signed by Nate Mendosa MD> Date Nate Mendosa MD CC: No Primary Care Physician; Nate Mendosa MD Signed PATHOLOGY SPECIMEN OB Collected: 02/15/2017 Status: F Source: [place] 5:19 PM [facility] REPOSITORY Order Comment: Comments: possible chorio Reason for Laboratory Test Placenta for lab studies Send Specimen For (Specify): Studies @ [facility] Lab:Routine Time of Procedure: 1700 Date of Procedure: 02/15/17 Reason specimen being sent to pathology (Hx/complications): maternal fever Type of specimen: Placenta Type of procedure performed: Other TYPE CODE TESTS RESULT OUT OF RANGE REFERENCE UNITS LAB L350.1800 SEE Normal PATH. PATHOLOGY Spec. OB REPORT Result Comment: Specimen submitted to Anatomical Pathology Department for testing. Performed By: #### L350.1800 #### [facility] [address] [place], [address] PLACENTA Observed: 02/15/2017 Status: F Source: [place] 5:00 PM [facility] REPOSITORY Patient: VANDANA DOWNS : 1995 () Acct Num: [id number] Phys: Rafael Kincaid Unit Num: [id number] Loc: WP [id number] Specimen: [id number] Received: 02/15/171908 Spec Type: PLACENTA TISSUES TISSUES: Placenta, NOS GROSS DESCRIPTION SPECIMEN: PLACENTA / CLINICAL INFORMATION: A. Weight: 3.79 kg B. Gestational Age: 41 weeks C. Sex: Male PLACENTAL WEIGHT (POST FIXATION): 589 gm PLACENTAL DIMENSIONS: 19 x 16 x 4 cm PLACENTAL SHAPE: Usual ovoid PLACENTAL WEIGHT FOR GESTATIONAL AGE: Within 10-99th percentile MEMBRANES - Present A. Insertion: Marginal B. Site of rupture from edge: 4 cm from edge of placental disc C. Color of membrane: Cintron, mucoidy D. Abnormalities: None UMBILICAL CORD - Present A. Color: Cintron-martinez B. Insertion: Central C. Length: 26 cm D. Diameter: 1 cm E. Number of vessels: Three F. Abnormalities: A false knot is noted. PLACENTAL DISC - Present A. Color of surface: Cintron-martinez B. surface abnormalities: None C. Maternal cotyledons: Intact with minimal tears D. Attached retro placental clot: No clot E. Cut surface: Dark red and spongy F. Lesions: In the peripheral portion of the placenta, a cintron, indurated area measuring 0.4 cm in greatest dimension. G. Separate clot: Absent SECTIONS SUBMITTED: 1. Membrane roll 2. Cord, maternal end, area of false knot inked black 3. Cord, end, cintron, indurated lesion 4. Placental disc, and maternal surfaces 5. Placental disc, and maternal surfaces 6. Placental disc, and maternal surfaces :jeffery 02/17/17 TC:5 CPT: 81975 HEADER OPERATION: Vaginal delivery PRE-OP DIAGNOSIS: Maternal fever TISSUE SUBMITTED: Placenta MICROSCOPIC DESCRIPTION Slides are reviewed. MICROSCOPIC DIAGNOSIS Placenta: Placental disc - third trimester placenta (589 gm). - Peripheral lesion with focal increased fibrin deposition, congestion and calcification. - Focal villous congestion, hemorrhage and increased calcification of maternal surface. Membranes - no pathologic diagnosis. Umbilical cord - three blood vessels and no pathologic diagnosis. KATHERYN:jeffery 02/18/17 Signed Edilberto Barnard 02/18/17 <signature on file> Performed By: #### [facility] #### [facility] [address] [place], [address] HISTORY AND PHYSICAL Observed: 02/15/2017 Status: F Source: [place] EXAM 9:12 AM [facility] REPOSITORY [facility] Medical Records Department [address] [place] [address] History and Physical 02/15/17 0904 MR#: [id number] Acct: [id number] Name: VANDANA DOWNS Rep #: [id number] : 1995 21 From: Nate Mendosa MD PCP: Care Physician, No Primary Status: ADM IN Location: [place] [id number] History Date of Admission: 02/15/17 Gestational age: 40 History of this : Vandana is a 21-year-old 2 para 0010 who presents at 41 weeks gestation with EDC of 02/08/2017 by trimester ultrasound alone who presents in labor. Her contractions became closer together and intense enough that she arrived to labor and delivery at [facility] this morning. She was supposed to be induced today for 41 week but arrived in labor. Her has been complicated to date by polyps and a history of anxiety. She is group B strep positive Metrical history: One previous first trimester miscarriage Allergies No Known Allergies Allergy (Verified 02/15/17 03:34) Current Medications Acetaminophen (Tylenol) 325 - 650 mg PO Q4H PRN PRN PRN Reason: PAIN OR FEVER >100.4F Al Hydroxide/Mg Hydroxide (Mylanta Ii) 15 - 30 ml PO Q4H PRN PRN PRN Reason: INDIGESTION Citric Acid/Sodium Citrate (Bicitra) 30 ml PO UD PRN Lactated Ringer's () 1,000 mls @ 50 mls/hr IV .Q20H [facility] Last Admin: 02/15/17 05:09 Dose: 50 mls/hr Oxytocin/Sodium Chloride () 30 units in 500 mls @ 1 mls/hr IV .Q500H [facility] Last Admin: 02/15/17 06:44 Dose: 1 mls/hr Penicillin G Potassium/Dextrose (Penicillin G Potassium) 3 mu in 50 mls @ 100 mls/hr IV Q4H [facility] Last Admin: 02/15/17 07:27 Dose: 100 mls/hr Naloxone HCl 4 mg/ Dextrose 504 mls @ 0 mls/hr IV PRN PRN; Protocol PRN Reason: TO MAINTAIN RR>10 Nalbuphine HCl (Nubain) 5 - 10 mg IV Q3H PRN PRN PRN Reason: PAIN (4-10/10) Nalbuphine HCl (Nubain) 5 mg IV Q3H PRN PRN Reason: ITCHING Stop: 02/16/17 05:18 Naloxone HCl (Narcan) 0.2 mg IV Q1M PRN PRN Reason: RR<10 AND PT UNRESPONSIVE Stop: 02/16/17 05:18 Ondansetron HCl (Zofran) 4 mg IV Q8H PRN PRN PRN Reason: NAUSEA Promethazine HCl (Phenergan (Ll)) 6.25 - 12.5 mg IV Q4H PRN PRN; Protocol PRN Reason: IF NAUSEA PERSISTS Sodium Chloride () 5 - 15 ml IV UD KENNY Last Admin: 02/15/17 03:32 Dose: Not Given Smoking Status: Never smoker Alcohol: None Drug Use: none Number of Fetus(es): 1 Review of Systems Constitutional: Denies: Chills, Fever Cardiovascular: Denies: Chest Pain Respiratory: Denies: Cough, Shortness of Breath Gastrointestinal: Denies: Abdominal Pain Physical Exam General: Alert, Cooperative Cardiovascular: Regular rate Lungs: Normal air movement Abdomen: Soft, Non Tender, Non-Distended, Gravid, Appropriate for Gestational Age Extremities:: Other - edema 1+ Estimated gestational size: Appropriate for gestational size Presentation: Cephalic Cervix Dilation (cm): 5 Station: -1 Effacement (%): 90 Assessment/Plan 21 YOF @ 41 weeks in labor pitocin augmentation EFW < 4500 gm pelvis is clinically adequate to expect vaginal delivery comfortable w/ epidural 02/15/17 0912 <Electronically signed by Nate Mendosa MD> Date Nate Mendosa MD Cosigner Signature: Date (if applicable) CC: No Primary Care Physician; Nate Mendosa MD Signed CBC-COMPLETE BLOOD CNT Collected: 02/15/2017 Status: F Source: ANDREZ NO DIFF 3:30 AM [facility] REPOSITORY TYPE CODE TESTS RESULT OUT OF RANGE REFERENCE UNITS LAB L100.1000 4.4-11.0 K/mm3 High WBC 14.0 LAB L100.1200 4.2-5.4 M/mm3 Normal RBC 4.20 LAB L100.1300 12.0-15.0 g/dl Normal HGB 13.7 LAB L100.1400 37-47 % Normal HCT 40.0 LAB L100.1500 81-99 fL Normal MCV 95.2 LAB L100.1600 27.0-32.0 pg High MCH 32.6 LAB L100.1700 32-36 g/gl Normal MCHC 34.3 LAB L100.1810 11.6-14.6 % Normal RDW CV 13.2 LAB L100.1820 35.1-43.9 fl High RDW SD 45.6 LAB L100.1900 150-450 K/mm3 Normal PLT 222 LAB L100.2000 6.2-12.0 fl Normal MPV 10.7 Performed By: #### L100.0500 #### [facility] [address] [place], [address] TYPE AND SCREEN Collected: 02/15/2017 Status: F Source: OCEANA 3:30 AM [facility] REPOSITORY Order Comment: Reason for Type AND Screen/Red Cells: ROUTINE TYPE CODE TESTS RESULT OUT OF RANGE REFERENCE UNITS LAB B10.0800 AB Normal BLOOD TYPE GEL POSITIVE LAB B100.4000 Normal Antibody NEGATIVE Screen Performed By: #### B101.7450 #### [facility] [address] [place], [place], [address] ALLERGIES ALLERGIES DATE TYPE / CODE NAME / CODE REACTION SEVERITY SOURCE 01/20/2018 Drug No Known Unknown [facility] Allergy/416 Allergies/C82602 [facility] 572157(SNOM 0388(RXNORM) Repository ED CT) Drug NO KNOWN [facility] Class/90246 ALLERGIES [place] 1003(SNOMED Repository CT) ENCOUNTERS ENCOUNTERS ADMIT/DISCHARGE ACCOUNT ADMITTING ENCOUNTER LOCATION SOURCE NUMBER CLASS 02/01/2018/02/03/20 [id number] Ambulatory [address] Repository 01/20/2018/01/21/20 [id number] Emergency [address] ing:ED Repository 01/04/2018/01/06/20 [id number] Ambulatory [address] Repository 01/04/2018/01/07/20 [id number] Ambulatory [address] Repository 12/05/2017/10/16 [id number] Ambulatory [address] [place] Repository 11/10/2017/11/11/19 [id number] Ambulatory [address] Repository 11/07/2017/11/09/19 [id number] Ambulatory [address] Repository 10/10/2017/10/11/19 [id number] Ambulatory [address] Repository 10/10/2017/10/11/19 [id number] Ambulatory [address] Repository 05/26/2017/05/27/19 [id number] Ambulatory [address] Repository 03/29/2017/03/30/19 [id number] Ambulatory [address] Repository 02/22/2017/02/22/19 [id number] [place] [facility] ing:WPOUT Repository 02/15/2017/02/18/20 [id number] Andrea Shawnblayne Inpatient Andrez Andrez 17 Encounter [facility] ing:WPRoom: Repository VD646Coa: 1 02/14/2017/02/15/20 [id number] Ambulatory [place] [facility] ing:WPOUTRoom Repository : WP015 PAYERS PAYERS ENCOUNTER GUARANTOR PAYER SUBSCRIBER SOURCE 01/20/2018 VANDANA J Primary VANDANA J [place] [id number] [place] Insurance:ANTHEMPTGH [place]: [facility] Number: [id number] Hospital [address]Uta: 419 [id number] Repository [phone] () Date:9593-27-07PO LAURA [address] [place] [address]2958XO: 01/20/2018 Secondary NOT GIVENUNK [place] Insurance:SELF PAY [facility] Number: Effective Repository Date:2018-01-20 02/22/2017 VANDANA J Primary VANDANA J [place] [id number] [place] [facility] Number: [id number] Hospital 02369Qcz: [id number] Repository [phone] Date:2103-08-31[address] (HP) [address] [place] [address]28HE: 02/22/2017 Secondary NOT GIVENUNK [place] Insurance:SELF PAY [facility] Number: Effective Repository Date:2017-02-22 02/15/2017 VANDANA MUSE Primary VANDANA DOWNS130 [place] Insurance:ANTHEMPolic [place]ORDOB: [facility] [place] [place] Number: [id number] Hospital [address]Jid: [id number] Repository [phone] Date:[id number] () [id number], [place] [address]OF: 02/15/2017 Secondary NOT GIVENUNK Andrez Insurance:SELF PAY [facility] Number: Effective Repository Date:2017-02-15 02/14/2017 VANDANA MUSE Primary VANDANA DOWNS130 [place] Insurance:ANTHEMPolic TAYLORDOB: [facility] [place] Number: [id number] Hospital 76[address]Xly: [id number] Repository [phone] Date:[id number] () [id number], [place] [address]HJ: 02/14/2017 Secondary NOT GIVENUNK Andrez Insurance:SELF PAY [facility] Number: Effective Repository Date:2017-02-14
== END 2018-01-20 19:53 | disposition home or self-care (01) ==
PROVIDERS: Emergency Provider Emergency Medicine
DX: O26.892 Other specified pregnancy related conditions, second trimester (principal); R11.2 Nausea with vomiting, unspecified; R10.10 Upper abdominal pain, unspecified; O99.712 Diseases of the skin and subcutaneous tissue complicating pregnancy, second trimester; L40.9 Psoriasis, unspecified; Z3A.22 22 weeks gestation of pregnancy
CPT/HCPCS: 80048; 81001; 85025; 96361; 96374; 99283; J7030; A4216; J2405

== ENCOUNTER 2018-05-23 23:28 | Inpatient (IN) | payer BC, SELFPAY ==
[2018-05-23 22:42] VITALS: BMI 26.3
[2018-05-23] MEDS: Lactated Ringers 1,000 ML 50 ML IV (23:30)
[2018-05-23 23:45] LABS: Absolute Lymphocyte Count 1.72 X10^3/ul (0.83-4.51); Absolute Neutrophil Count 8.9 X10^3/uL (2.0-7.7); Basophil# 0.01 X10^3/uL; Basophil% 0.1 % (0-1); Eosinophil# 0.09 X10^3/uL; Eosinophils% 0.8 % (0-5); Hematocrit 34.2 % (37-47); Hemoglobin 11.1 g/dl (12.0-15.0); Lymphocyte # 1.72 X10^3/ul (4.0); Lymphocyte % 14.8 % (19-41); Mean Corp Hgb Conc 32.5 g/gl (32-36); Mean Corpuscular Hgb 26.9 pg (27.0-32.0); Mean Platelet Vol. 11.2 fl (6.2-12.0); Monocyte# 0.88 X10^3/uL; Monocyte% 7.6 % (0-10); Neutrophil # 8.87 X10^3/uL (2.7-7.7); Neutrophil % 76.5 % (47-70); Platelet Count 281 K/mm3 (150-450); RBC Distribution Width CV 14.6 % (11.6-14.6); RBC Distribution Width SD 44.4 fl (35.1-43.9); Red Blood Count 4.12 M/mm3 (4.2-5.4); White Blood Count 11.6 K/mm3 (4.4-11.0)
[2018-05-23 23:52] LABS: POSITIVE COUNT NO; POSITIVE DIFFERENTIAL NO; POSITIVE MORPHOLOGY NO
[2018-05-24] MEDS: Lactated Ringers 1,000 ML 50 ML IV ×2 (00:26→03:58)
--- NOTE | 2018-05-24 06:31 | PCM.HP.OB ---
History Date of Admission: 02/15/17 Final PAZ: 05/22/18 Final PAZ Source: US <20 weeks Gestational age: 40 Weeks and 2 Days History of this : This is a 22 year-old, multigravida at 40-2/7 weeks gestation presents in active labor. She denies any gross vaginal bleeding or leaking of fluid. She has had good movement. Assessed on labor and delivery and found to have cervical change and was admitted for labor. Allergies No Known Allergies Allergy (Verified 01/20/18 16:48) Home Medications: Home Medications Vits [Prenatabs FA ] 1 tab PO DAILY 02/14/17 Ondansetron [Zofran Odt] 4 mg PO Q8H PRN PRN #10 tablet 01/20/18 Smoking Status: Never smoker Alcohol: None Number of Fetus(es): 1 History Past Pregnancies: Past Pregnancies Delivery Date Name GA/Weeks Outcome Route Weight Gender Labor Length Anesthesia Delivery Location Provider FOB Expected Infant Delivery Method: Spontaneous Vaginal Review of Systems Constitutional: Denies: Chills, Fever Eyes: Denies: Blurred vision Cardiovascular: Denies: Edema Gastrointestinal: Denies: Abdominal Pain Genitourinary: Denies: Dysuria Physical Exam General: Alert, Cooperative, No apparent distress Cardiovascular: Regular rate Lungs: Normal air movement Abdomen: Soft, Non-Distended, Gravid Extremities:: No edema BASTER HAND: Normal external genitalia Estimated gestational size: Appropriate for gestational size Presentation: Cephalic Assessment/Plan This is a 22 year-old, 011 at 40-2/7 weeks gestation with spontaneous labor. Estimated weight is less than 4500 g clinically and pelvis is clinically adequate to expect vaginal delivery. Patient has epidural for pain control. Will augment with Pitocin as needed. Group B strep prophylaxis has been initiated.
--- NOTE | 2018-05-24 06:37 | HP.PCM_ITS ---
History Date of Admission: 02/15/17 Final PAZ: 05/22/18 Final PAZ Source: US <20 weeks Gestational age: 40 Weeks and 2 Days History of this : This is a 22 year-old, multigravida at 40-2/7 weeks gestation presents in active labor. She denies any gross vaginal bleeding or leaking of fluid. She has had good movement. Assessed on labor and delivery and found to have cervical change and was admitted for labor. Allergies No Known Allergies Allergy (Verified 01/20/18 16:48) Home Medications: Home Medications Vits [Prenatabs FA ] 1 tab PO DAILY 02/14/17 Ondansetron [Zofran Odt] 4 mg PO Q8H PRN PRN #10 tablet 01/20/18 Smoking Status: Never smoker Alcohol: None Number of Fetus(es): 1 History Past Pregnancies: Past Pregnancies Delivery Date Name GA/Weeks Outcome Route Weight Gender Labor Length Anesthesia Delivery Location Provider FOB Expected Infant Delivery Method: Spontaneous Vaginal Review of Systems Constitutional: Denies: Chills, Fever Eyes: Denies: Blurred vision Cardiovascular: Denies: Edema Gastrointestinal: Denies: Abdominal Pain Genitourinary: Denies: Dysuria Physical Exam General: Alert, Cooperative, No apparent distress Cardiovascular: Regular rate Lungs: Normal air movement Abdomen: Soft, Non-Distended, Gravid Extremities:: No edema COMPUTER SYSTEMS SUPPORT SPECIALIST: Normal external genitalia Estimated gestational size: Appropriate for gestational size Presentation: Cephalic Assessment/Plan This is a 22 year-old, 011 at 40-2/7 weeks gestation with spontaneous labor. Estimated weight is less than 4500 g clinically and pelvis is clinically adequate to expect vaginal delivery. Patient has epidural for pain control. Will augment with Pitocin as needed. Group B strep prophylaxis has been initiated.
[2018-05-24] MEDS: Oxytocin 30 units/NS 500 ml 30 UNITS/500 ML IV.SOLN 334 UNITS IV (09:14)
--- NOTE | 2018-05-24 09:21 | PCM.OB.VAG ---
Vaginal Delivery Maternal Presentation: Active Labor Amniotic Membrane Rupture Type: Artificial Amniotic Fluid Description: Clear Final PAZ: 05/22/18 Final PAZ Source: US <20 weeks Gestational age: 40 Weeks and 2 Days Date of Procedure: 05/24/18 Pre-Operative Diagnosis: labor Post-Operative Diagnosis: same Surgery/ Procedure Performed: Spontaneous Vaginal Delivery Type of Anesthesia: None Description of Procedure: A vigorous male infant was delivered VINEET over a first-degree perineal laceration. The remainder the infant was delivered with maternal pushing and gentle traction only in less than 15 seconds. The Pitocin infusion was initiated for active management of the third stage. The cord was clamped and cut after 1 minute. The was attended to by the waiting nursing staff. The placenta was delivered spontaneously and intact. The cervix and vagina were intact. The first-degree perineal laceration was repaired with a single 3-0 Vicryl Rapide [id number]. Sponge and needle counts were correct. A vaginal sweep was completed by me. Presentation: VINEET
--- NOTE | 2018-05-24 09:24 | OP.PCM_ITS ---
Vaginal Delivery Maternal Presentation: Active Labor Amniotic Membrane Rupture Type: Artificial Amniotic Fluid Description: Clear Final PAZ: 05/22/18 Final PAZ Source: US <20 weeks Gestational age: 40 Weeks and 2 Days Date of Procedure: 05/24/18 Pre-Operative Diagnosis: labor Post-Operative Diagnosis: same Surgery/ Procedure Performed: Spontaneous Vaginal Delivery Type of Anesthesia: None Description of Procedure: A vigorous male infant was delivered VINEET over a first-degree perineal laceration. The remainder the infant was delivered with maternal pushing and gentle traction only in less than 15 seconds. The Pitocin infusion was initiated for active management of the third stage. The cord was clamped and cut after 1 minute. The was attended to by the waiting nursing staff. The placenta was delivered spontaneously and intact. The cervix and vagina were intact. The first-degree perineal laceration was repaired with a single 3-0 Vicryl Rapide [id number]. Sponge and needle counts were correct. A vaginal sweep was completed by me. Presentation: VINEET
[2018-05-24] MEDS: Oxytocin 30 units/NS 500 ml 30 UNITS/500 ML IV.SOLN 167 UNITS IV (09:47)
[2018-05-24 14:00] VITALS: BP 107/56; PULSE 84; RESP 18; TEMP 36.8
[2018-05-24 20:00] VITALS: BP 103/51; PULSE 84; RESP 16; TEMP 36.6; O2SAT 97
[2018-05-24] MEDS: Acetaminophen 500 MG Tablet 1000 MG PO (22:20)
[2018-05-25 00:25] VITALS: BP 105/49; PULSE 70; RESP 16; TEMP 36.6
[2018-05-25 04:10] VITALS: BP 101/61; PULSE 69; RESP 16; TEMP 36.4
--- NOTE | 2018-05-25 08:03 | PCM.PN.OB ---
Subjective: Pain well controlled, average lochia. - Physical Exam General: Alert, Cooperative, No apparent distress Vital Signs Temp Pulse Resp BP Pulse Ox 97.6 F L 69 16 101/61 97 05/25/18 04:10 05/25/18 04:10 05/25/18 04:10 05/25/18 04:10 05/24/18 20:00 Oxygen Delivery Method Room Air Weight: 85.729 kg Body Mass Index (BMI) 26.3 Intake and Output for Last 24 Hours 05/23/18 05/24/18 05/25/18 23:59 23:59 23:59 Intake Total 4680 / 4680 Output Total 1700 / 1700 Balance 2980 / 2980 Medical Necessity - Tobacco Use Smoking Status: Never smoker Assessment/Plan day #1 doing well. Routine care. Currently breast-feeding and doing well. Likely discharge home tomorrow.
--- NOTE | 2018-05-25 08:05 | DCINST_ITS ---
Discharge Diet: No Restrictions Discharge Activity: Return to Normal Activity, May not drive while taking narcotic pain medications., May Shower May resume sexual activity in: 4-6 weeks Additional Activity Instructions:: Nothing in the vagina for 4-6 weeks. You may return to work/school in 6 weeks. Call your doctor if your incision/area has: Continuous Slow Oozing, Sudden Increased Bleeding, Increased Pain/ Swelling, Increased Redness, Foul Smelling Discharge Additional Instructions: If you experience any of the following, contact your healthcare provider. * Bleeding that soaks a pad every hour for 2 hours * Fever 100.4 or higher * Unrelieved incision or abdominal pain * Swelling, redness, discharge or bleeding from your incision or episiotomy site * Your incision begins to separate * Problems urinating (including inability to urinate or burning while urinating). * Visual changes * Severe headache * Flu-like symptoms * Pain or redness in one of both of your breasts * Pain, warmth, tenderness or swelling in your legs, especially the calf area * Frequent nausea and vomiting * Symptoms of depression or anxiety If you experience any of the following, call 911 or go to the nearest Emergency Room. * Chest pain * Problems breathing * Seizure activity * Partial or complete paralysis of a body part, slurred speech, weakness or drooping of the face, or a sudden inability to walk or hold your balance Allergies/Adverse Reactions: Allergies No Known Allergies Allergy (Verified 01/20/18 16:48) Medications to take at Discharge Vits [Prenatabs FA ] 1 tab PO DAILY 02/14/17 Ibuprofen [Motrin] 600 mg PO Q6H PRN #60 tablet 05/25/18 The following prescriptions were given: Ibuprofen [Motrin] 600 mg PO Q6H PRN #60 tablet PRN Reason: Pain Please Follow Up With: Hellen Irizarry MD - [phone] When: Call to make an appointment in your provider's office in 1-2 and 6 weeks or as needed. Primary Care Physician: Care Physician,No Primary [Primary Care Provider] - Test Results: Test results from this visit will be discussed in further detail at your follow- up appointment, if applicable.
[2018-05-25 09:10] VITALS: BP 109/63; PULSE 68; RESP 18; TEMP 36.6; O2SAT 100
[2018-05-25 14:00] VITALS: BP 105/63; PULSE 75; RESP 18; TEMP 36.6; O2SAT 98
[2018-05-25 20:05] VITALS: BP 102/63; PULSE 92; RESP 18; TEMP 36.3
[2018-05-25] MEDS: Senna/Docusate Sodium 1 Tablet PO (22:16)
[2018-05-26] MEDS: Naproxen 250 MG Tablet 500 MG PO (01:35)
[2018-05-26 01:45] VITALS: BP 105/56; PULSE 71; RESP 18; TEMP 36.6
--- NOTE | 2018-05-26 08:50 | PCM.PN.OB ---
Subjective: Patient sitting up in bed bonding with baby at this time. Patient denies any issues currently, desires discharge to home today. Denies issues with ambulation or urination. Reports that baby is latching well and that she does not have any issues with at this time. Objective: Nipples without cracks or blisters, no erythema noted Abdomen NT x 4 quadrants, FF midline 2FB below umbilicus scant rubra lochia negative calf tenderness to palpation +2/4 reflexes in LE, no edema noted - Physical Exam General: Alert, Oriented x3, Cooperative HEENT: Atraumatic, Normocephalic Lungs: Normal air movement Cardiovascular: Regular rate, No murmurs Abdomen: Soft, Non Tender Extremities: No edema, Capillary Refill Less than 3 Seconds Skin: No rashes, No breakdown Musculoskeletal: No Tenderness to Palpation of Joints or Extremities Neurological: Cranial nerves II-XII grossly intact Psych/Mental Status: Normal Affect, Appropriate Vital Signs Temp Pulse Resp BP Pulse Ox 97.9 F 71 18 105/56 L 98 05/26/18 01:45 05/26/18 01:45 05/26/18 01:45 05/26/18 01:45 05/25/18 14:00 Oxygen Delivery Method Room Air Weight: 189 lb Body Mass Index (BMI) 26.3 Intake and Output for Last 24 Hours 05/24/18 05/25/18 05/26/18 23:59 23:59 23:59 Intake Total 4680 / 4680 Output Total 1700 / 1700 Balance 2980 / 2980 Medical Necessity - Tobacco Use Smoking Status: Never smoker Assessment/Plan 22 y/o s/p , PPD #2, Normal PP Course P: 1) Discharge to home pending discharge 2) Anticipatory health teaching done, PP teaching provided 3) RTC in 6 weeks to [facility] for Visit Melinda SEO
--- NOTE | 2018-05-26 08:55 | PN.OBGYN_ITS ---
Subjective: Patient sitting up in bed bonding with baby at this time. Patient denies any issues currently, desires discharge to home today. Denies issues with ambulation or urination. Reports that baby is latching well and that she does not have any issues with at this time. Objective: Nipples without cracks or blisters, no erythema noted Abdomen NT x 4 quadrants, FF midline 2FB below umbilicus scant rubra lochia negative calf tenderness to palpation +2/4 reflexes in LE, no edema noted - Physical Exam General: Alert, Oriented x3, Cooperative HEENT: Atraumatic, Normocephalic Lungs: Normal air movement Cardiovascular: Regular rate, No murmurs Abdomen: Soft, Non Tender Extremities: No edema, Capillary Refill Less than 3 Seconds Skin: No rashes, No breakdown Musculoskeletal: No Tenderness to Palpation of Joints or Extremities Neurological: Cranial nerves II-XII grossly intact Psych/Mental Status: Normal Affect, Appropriate Vital Signs Temp Pulse Resp BP Pulse Ox 97.9 F 71 18 105/56 L 98 05/26/18 01:45 05/26/18 01:45 05/26/18 01:45 05/26/18 01:45 05/25/18 14:00 Oxygen Delivery Method Room Air Weight: 189 lb Body Mass Index (BMI) 26.3 Intake and Output for Last 24 Hours 05/24/18 05/25/18 05/26/18 23:59 23:59 23:59 Intake Total 4680 / 4680 Output Total 1700 / 1700 Balance 2980 / 2980 Medical Necessity - Tobacco Use Smoking Status: Never smoker Assessment/Plan 22 y/o s/p , PPD #2, Normal PP Course P: 1) Discharge to home pending discharge 2) Anticipatory health teaching done, PP teaching provided 3) RTC in 6 weeks to [facility] for Visit Melinda SEO
[2018-05-26 10:00] VITALS: BP 105/54; PULSE 70; RESP 20; TEMP 36.2
== END 2018-05-26 10:00 | disposition home or self-care (01) | DRG 807 ==
LOC: WPOUT 23:29 → WP 05-24 07:14
PROVIDERS: Admitting Provider Obstetrics & Gynecology; Referring Provider Obstetrics & Gynecology; Visit Provider Obstetrics & Gynecology
DX: O99.824 Streptococcus B carrier state complicating childbirth (principal); Z37.0 Single live birth; O70.0 First degree perineal laceration during delivery; Z3A.40 40 weeks gestation of pregnancy
CPT/HCPCS: 59025; 59050; 85025; 86850; 86900; 99218; J7120; G0378

== ENCOUNTER 2018-05-30 12:37 | Outpatient (CLI) | payer BC, SELFPAY | END 2018-05-30 14:10 | disposition home or self-care (01) | LOC: WPOUT 12:38 → WP 12:40 | PROVIDERS: Referring Provider Obstetrics & Gynecology; Visit Provider Obstetrics & Gynecology | DX: Z39.1 Encounter for care and examination of lactating mother (principal) | CPT/HCPCS: 96152 ==

== ENCOUNTER 2021-05-08 18:40 | Inpatient (IN) | payer OTHER, SELFPAY ==
[2021-05-08] VITALS (9 sets, daily range): BP systolic 103–110; BP diastolic 58–65; PULSE 31–81; TEMP 36.2–36.6; O2SAT 91–100; BMI 28.3
[2021-05-08] MEDS: Lactated Ringers 1,000 ML 50 ML IV (20:02)
[2021-05-08 20:20] LABS: Absolute Lymphocyte Count 1.63 X10^3/uL (0.83-4.51); Absolute Neutrophil Count 6.8 X10^3/uL (2.0-7.7); Basophil# 0.02 X10^3/uL; Basophil% 0.2 % (0-1); Eosinophil# 0.07 X10^3/uL; Eosinophils% 0.7 % (0-5); Hematocrit 29.9 % (37-47); Hemoglobin 9.6 g/dL (12.0-15.0); Lymphocyte # 1.63 X10^3/ul (0.83-4.51); Lymphocyte % 17.3 % (19-41); Mean Corp Hgb Conc 32.1 g/dL (32-36); Mean Corpuscular Hgb 25.5 pg (27.0-32.0); Mean Corpuscular Volume 79.5 fL (81-99); Mean Platelet Vol. 10.4 fl (6.2-12.0); Monocyte# 0.83 X10^3/uL; Monocyte% 8.8 % (0-10); NRBC Flagged by Analyzer 0 % (0-5); Neutrophil # 6.79 X10^3/uL (2.7-7.7); Neutrophil % 72.4 % (47-70); Platelet Count 293 K/mm3 (150-450); RBC Distribution Width CV 15.2 % (11.6-14.6); Red Blood Count 3.76 M/mm3 (4.2-5.4); White Blood Count 9.4 K/mm3 (4.4-11.0)
[2021-05-08] MEDS: Oxytocin 30 units/NS 500 ml 30 UNITS/500 ML IV.SOLN IV (20:29)
[2021-05-09] VITALS (31 sets, daily range): BP systolic 87–120; BP diastolic 49–68; PULSE 60–180; RESP 14–16; TEMP 36.1–36.9; O2SAT 83–100
[2021-05-09] MEDS: Penicillin G 3,000,000 Units 50 ML 100 UNITS IV ×3 (00:30→08:07)
[2021-05-09] MEDS: Lactated Ringers 500 ML 999 ML IV (10:00)
--- NOTE | 2021-05-09 10:13 | HP.PCM.OB_ITS ---
HPI - General General Date of Admission: 05/08/21 Date of Service: 05/08/21 Chief Complaint: induction of labor HPI Narrative VANDANA DOWNS, is a 25 F 4 para 2-0-1-2 with EDC of 05/09/2021 presents for induction of labor due to suspected large for gestational age fetus. She denies any vaginal bleeding or leaking of fluid. She is had no regular contractions. She has had good movement. has been uncomplicated to date. She has a history of 2 previous vaginal deliveries. 8 pounds 5 ounces and 9 pounds 6 ounces without complications. Maternal Data Information Final PAZ: 05/09/21 Gestational age: 40w [facility] Medical History (Updated 05/09/21 @ 10:[address] Hellen Irizarry MD) Anxiety Erythema nodosum Headache macrosomia Psoriasis Home Medications Prenatabs FA 1 tab PO DAILY 02/14/17 [History Last Taken 05/07/21 21:00] Allergy/AdvReac Type Severity Reaction Status Date / Time No Known Allergies Allergy Verified 05/08/21 20:34 Surgical History (Updated 05/08/21 @ 20:41 by Joceline Brown) History of surgery Social History Smoking Status: Never smoker History Elective abortions Hx Para 2 Spontaneous abortions Hx # Term Pregnancies Ectopic pregnancies Hx # Pregnancies Multiple births # of living children ROS Constitutional Constitutional: Denies fatigue, fever(s) or malaise Eyes Eyes: Denies change in vision ENT HEENT: Denies dizziness or headache(s) Cardiovascular Cardiovascular: Denies chest pain, dyspnea or lightheadedness Respiratory/Chest Respiratory/Chest: Denies cough or dyspnea Gastrointestinal Gastrointestinal: Denies change in bowel habits Genitourinary Genitourinary: Denies burning urination or genital lesions Integumentary Integumentary: Denies rash Neurologic Neurologic: Denies confusion, dizziness, headache(s), numbness or weakness Vital Signs Vital Signs Vital Signs: 05/08/21 19:45 05/08/21 19:49 05/08/21 19:50 Temperature 97.9 F Temperature Source Temporal Pulse Rate 76 31 L 75 Blood Pressure 103/61 BP Systolic 103 BP Diastolic 61 Pulse Ox 98 91 05/08/21 21:11 05/08/21 21:12 05/08/21 22:22 Temperature 97.5 F L Temperature Source Temporal Pulse Rate 81 77 65 Blood Pressure 110/65 108/59 L BP Systolic 110 108 BP Diastolic 65 59 Pulse Ox 98 05/08/21 22:23 05/08/21 22:26 05/08/21 23:27 Temperature 97.1 F L 97.2 F L Temperature Source Temporal Temporal Pulse Rate 70 Blood Pressure 104/58 L BP Systolic 104 BP Diastolic 58 Pulse Ox 98 100 05/09/21 00:32 05/09/21 01:24 05/09/21 02:32 Temperature 97.6 F L 97.2 F L 97.8 F Temperature Source Temporal Temporal Temporal Pulse Rate 76 79 90 Blood Pressure 110/63 107/68 114/63 BP Systolic 110 107 114 BP Diastolic 63 68 63 Pulse Ox 100 100 99 05/09/21 03:26 05/09/21 03:27 05/09/21 04:37 Temperature 97.6 F L Temperature Source Temporal Pulse Rate 73 71 79 Blood Pressure 99/49 L 87/52 L BP Systolic 99 87 BP Diastolic 49 52 Pulse Ox 100 100 05/09/21 04:38 05/09/21 05:50 05/09/21 05:51 Temperature 97.4 F L Temperature Source Temporal Pulse Rate 73 67 Blood Pressure 98/53 L 106/54 L BP Systolic 98 106 BP Diastolic 53 54 Pulse Ox 99 99 05/09/21 06:36 05/09/21 06:37 05/09/21 06:43 Temperature 97.0 F L Temperature Source Temporal Pulse Rate 70 Blood Pressure 100/55 L BP Systolic 100 BP Diastolic 55 Pulse Ox 99 86 05/09/21 07:16 05/09/21 08:12 Temperature Temperature Source Pulse Rate 87 Blood Pressure 118/65 BP Systolic 118 BP Diastolic 65 Pulse Ox 100 Weight Weight: 89.358 kg Body Mass Index (BMI) 28.3 Physical Exam Const alert and no apparent distress General Appearance: cooperative HEENT normocephalic Resp normal respiratory effort Cardio regular rate GI soft to palpation GI Narrative: gravid, nontender, appropriate for gestational age Extremity no calf tenderness General Extremity: edema Skin no wounds Rashes: No rashes noted Psych activity/motor behavior normal Labs Labs Labs: Blood Type AB POSITIVE Antibody Screen NEGATIVE Hct 29.9 % (37-47) L Hgb 9.6 g/dL (12.0-15.0) L Rhogam given: No Assessment & Plan (1) 40 weeks gestation of : PLAN: Vandana is a 25-year-old female who is undergoing induction of labor electively. Estimated weight is approximately 4500 g by clinical assessment. Pelvis clinically adequate to expect vaginal delivery. Risk benefits and alternatives to induction were discussed with patient, questions were answered to her satisfaction she desires to proceed. (2) Elective induction of labor planned:
[2021-05-09] MEDS: Oxytocin 30 units/NS 500 ml 30 UNITS/500 ML IV.SOLN 334 UNITS IV (11:14)
--- NOTE | 2021-05-09 11:23 | EX.PCM.OBRPT ---
Assessment & Plan (1) (spontaneous vaginal delivery): Maternal Data Information Final PAZ: 05/09/21 Gestational age: 39 Vaginal Delivery Maternal Presentation Maternal Presentation: Elective Induction Type of Induction: Pitocin and Amniotomy Operative Information Date of Procedure: 05/09/21 Pre-Operative Diagnosis: 40 week IUP Post-Operative Diagnosis: same Surgery / Procedure Performed: Spontaneous Vaginal Delivery Type of Anesthesia: None Special Medications: none Drain: - (none) Estimated Blood Loss: 200 Time of Delivery: 11:10 Findings Description of Procedure: A vigorous male was delivered NOLAN over an intact perineum. A loose nuchal cord x2 was easily reduced. The remainder the was delivered with maternal pushing and gentle traction only in less than 15 seconds. The Pitocin infusion was initiated for active management of the third stage. The cord was clamped and cut [after 1 minute]. The was attended to by the waiting nursing staff. The placenta was delivered spontaneously and intact. The cervix and vagina were intact. Sponge and needle counts were correct. A vaginal sweep was completed by me. Presentation: NOLAN Amniotic Membrane Rupture Type: Artificial Amniotic Fluid Description: Clear Placental Delivery Description: Spontaneous Placenta Disposition: [facility] Cord Vessel Description: 3 Vessels Cord Entanglement: Around neck x 2, loose Nuchal Cord Compression: Without compression A Gender: Male (Nitin) (1 minute): 8 (5 minute): 9 Delayed Cord Clamping: Yes Post Vaginal Delivery Medications Given After Delivery: IV Pitocin Episiotomy Description: None Laceration: None Complication Complications: None
[2021-05-09] MEDS: Acetaminophen 500 MG Tablet 1000 MG PO (23:32)
[2021-05-10 03:30] VITALS: BP 103/42; PULSE 59; RESP 16; TEMP 36.5
[2021-05-10 08:23] VITALS: BP 98/63; PULSE 70; RESP 18; TEMP 36.7
--- NOTE | 2021-05-10 11:21 | PCM.DC.SUM ---
Providers Date of Admission: 05/08/21 Primary Care Physician: Sabiha Primary Care Phys Reason For Visit: INDUCTION Diagnosis Discharge Diagnosis (1) (spontaneous vaginal delivery): Status: Acute Code(s): O80 - Encounter for full-term uncomplicated delivery Medications at Discharge Home Medications Prenatabs FA 1 tab PO DAILY 02/14/17 Hospital Course Operations None Summary of Care Provided Hospital Course: Vandana is a 25-year-old female who was admitted at 39 6/7 weeks for elective induction of labor. Induction of labor with Pitocin and artificial rupture membranes was performed without difficulty. She had a spontaneous vaginal delivery without complication on the morning of 05/09/2021. By day #1 she was ambulating, urinating tolerating regular diet and discharged home with routine instructions. Weight / BMI Weight Weight: 89.358 kg Body Mass Index (BMI) 28.3 ABG / Lab / Microbiology Data Result Diagrams: 05/08/21 20:00 Microbiology: Microbiology 05/08/21 20:05 Nasal Secretion SARS-CoV-2 Antigen (Rapid) - Final D/C Instructions May resume sexual activity in: 6 weeks Please Follow Up With: Hellen Irizarry MD When: Follow up with our office in 1-2 and 6 weeks or as needed. [phone] Meaningful Use Info Meaningful Use Diagnoses (Choose all that apply): None applicable Discharge Plan Admission Admit Date/Time: 05/08/21 18:40 Primary Reason for Your Visit: Vaginal delivery Attending Provider: Hellen Irizarry Primary Care Provider: Care Physician,Sabiha Primary Discharge Orders/Prescriptions Prescriptions: No Action Prenatabs FA 1 TABLET tablet 1 tab PO DAILY RF: 0 Referrals / Follow Up: Care Physician,No Primary [Primary Care Provider] - Disposition Disposition (needs filled in before D/C Order can be placed): Home, Self Care
--- NOTE | 2021-05-10 11:24 | PCM.PN.OB ---
Subjective Subjective Pain well controlled. Average lochia. Objective Data Objective Data Vital Signs: Vital Signs Temp Pulse Resp BP Pulse Ox 98.0 F 70 18 98/63 83 05/10/21 08:23 05/10/21 08:23 05/10/21 08:23 05/10/21 08:23 05/09/21 11:11 Oxygen Delivery Method Room Air Weight: 89.358 kg Body Mass Index (BMI) 28.3 Intake & Output: Intake and Output for Last 24 Hours 05/08/21 05/09/21 05/10/21 23:59 23:59 23:59 Intake Total 138.07 / 138.07 2299.37 / 2299.37 Output Total 100 / 100 700 / 700 Balance 38.07 / 38.07 1599.37 / 1599.37 Lab / Micro Data Result Diagrams: 05/08/21 20:00 Micro: Microbiology 05/08/21 20:05 Nasal Secretion SARS-CoV-2 Antigen (Rapid) - Final Physical Exam Const alert and no apparent distress Narrative: Fundus firm, below umbilicus. Assessment & Plan (1) (spontaneous vaginal delivery): PLAN: day #1. Doing well. Routine care. Patient and ready for discharge home today. Follow-up for routine care or as needed.
[2021-05-10 12:45] VITALS: BP 107/60; PULSE 71; RESP 18; TEMP 36.4
== END 2021-05-10 13:15 | disposition home or self-care (01) | DRG 807 ==
PROVIDERS: Obstetrics & Gynecology; Admitting Provider Obstetrics & Gynecology; Visit Provider Obstetrics & Gynecology
DX: O69.81X0 Labor and delivery complicated by cord around neck, without compression, not applicable or unspecified (principal); Z37.0 Single live birth; Z3A.40 40 weeks gestation of pregnancy
CPT/HCPCS: 59025; 59050; 85025; 86850; 86900; 86901; 87426; 99218; J7120; G0378